=== PATIENT | female | born 1960 | race Caucasian/White ===

== ENCOUNTER → 2018-07-16 | Outpatient (CLI) | payer BC ==
[~2018-07-16] MED LIST: ARGI500C9 PO; CALC-866 PO; CHRO1000 PO; FOLI20CA PO; GLUC-148 PO; L.AC1CAP6 PO; MONT10TA21 PO; MULT-1203 PO; POLY119P2 PO; PREG100C PO; RESV100C PO; TEMA30CA PO; TIMO5DRO35 OP; TRAZ-185 PO; ginko biloba PO
== END | disposition home or self-care (01) ==
LOC: RAH 07:36
PROVIDERS: ATTEND Obstetrics & Gynecology
DX: N64.4 Mastodynia (principal)
CPT/HCPCS: 76641; 77066